=== PATIENT | male | born 1965 | race Caucasian/White ===

== ENCOUNTER 2020-03-29 08:40 | Emergency (ER) | payer OTHER ==
[~2020-03-29] VITALS: Ht 167.6 cm; Wt 102.1 kg
[~2020-03-29 08:40] MED LIST: FLEXERIL PO; IBUPROFEN 800800 M1 PO; LISINOPRIL20 MG PO; OMEPRAZOLE 20 M20 M1 PO
[2020-03-29] MEDS ORDERED: LIPITOR10 MG PO (08:51)
[2020-03-29] MEDS ORDERED: HYDROCODON-ACE1 EAC7 PO (08:51)
[2020-03-29] MEDS ORDERED: METFORMIN HCL500 M3 PO (08:51)
[2020-03-29] MEDS ORDERED: FLEXERIL PO (08:54)
[2020-03-29 09:10] VITALS: BP 121/90
== END 2020-03-29 09:10 | disposition home or self-care (01) ==
LOC: M.ERS 08:40
DX: S89.92XA Unspecified injury of left lower leg, initial encounter (principal); I10 Essential (primary) hypertension; Z98.890 Other specified postprocedural states; Z90.49 Acquired absence of other specified parts of digestive tract; Z79.899 Other long term (current) drug therapy; X50.1XXA Overexertion from prolonged static or awkward postures, initial encounter; Y93.89 Activity, other specified; Y92.69 Other specified industrial and construction area as the place of occurrence of the external cause; Y99.8 Other external cause status

== ENCOUNTER → 2020-05-22 | Outpatient (CLI) | payer OTHER ==
[~2020-05-22] MED LIST changes: +HYDROCODON-ACE1 EAC7 PO; +LIPITOR10 MG PO; +METFORMIN HCL500 M3 PO
== END ==
LOC: M.ULTRA 11:20
PROVIDERS: ATTEND Family Medicine
DX: R10.32 Left lower quadrant pain (principal)